=== PATIENT | male | born 1975 | race Caucasian/White ===

== ENCOUNTER 2018-07-18 16:54 | Emergency (ER) | payer BC ==
[~2018-07-18] VITALS: Ht 185.4 cm; Wt 113.4 kg
[~2018-07-18 16:54] MED LIST: ACYCLOVIR800 MG PO; AMOXICILLIN500 MG PO; BACTRIM DS 8001 TA1 PO; CEPHALEXIN500 M1 PO; DAYPRO600 M1 PO; LANTUS100 U/ML SC; LEVOTHYROXINE0.3 MG PO; NAPROSYN500 MG PO; NORCO 325 MG-51 TAB PO; NOVOLOG1 UNIT/0.0; PREDNISONE10 MG PO; ROBAXIN750 MG PO; SYNTHROID,LEVOTHROID PO; [UNRECOGNIZED DRUG - OTHER] PO
[2018-07-18] MEDS ORDERED: ZYRTEC10 MG PO (17:22)
[2018-07-18] MEDS ORDERED: Tobrex Ophth S2.5 ML OPH (17:22)
[2018-07-18] MEDS ORDERED: OMNICEF300 MG PO (17:22)
[2018-07-18] MEDS ORDERED: FLONASE ALLERG9.9 ML NAS (17:22)
== END 2018-07-18 17:40 | disposition home or self-care (01) ==
LOC: ED 16:54
DX: H10.31 Unspecified acute conjunctivitis, right eye (principal); J01.90 Acute sinusitis, unspecified; E11.9 Type 2 diabetes mellitus without complications; Z79.2 Long term (current) use of antibiotics; Z79.899 Other long term (current) drug therapy; Z79.4 Long term (current) use of insulin

== ENCOUNTER 2018-10-06 16:08 | Emergency (ER) | payer BC ==
[~2018-10-06] VITALS: Wt 117.9 kg
[~2018-10-06 16:08] MED LIST changes: +FLONASE ALLERG9.9 ML NAS; +OMNICEF300 MG PO; +Tobrex Ophth S2.5 ML OPH; +ZYRTEC10 MG PO
== END 2018-10-06 19:03 | disposition home or self-care (01) ==
LOC: ED 16:08
DX: H20.9 Unspecified iridocyclitis (principal); E11.9 Type 2 diabetes mellitus without complications; Z79.899 Other long term (current) drug therapy; Z79.2 Long term (current) use of antibiotics

== ENCOUNTER → 2019-03-25 | Outpatient (CLI) | payer BC ==
[2019-03-25 10:42] LABS: HEMATOCRIT 46.3 % (42.0-52.0); HEMOGLOBIN 15.4 g/dl (14.0-18.0); MEAN CELL VOLUME 90.3 fl (80.0-94.0); MEAN CORPUSCULAR HGB CONC 33.3 g/dl (33.0-37.0); MEAN PLATELET VOLUME 10.5 fl (9.6-12.3); RED BLOOD COUNT 5.13 10*6/uL (4.50-5.90); RED CELL DISTRI WIDTH 14.6 % (0-14.5)
[2019-03-25 11:07] LABS: ALBUMIN 3.6 gm/dl (3.1-4.5); ALKALINE PHOSPHATASE 66 U/L (45-117); BUN 13 mg/dl (7-24); CHLORIDE 107 mmol/L (98-107); CHOLESTEROL 135 mg/dL (<200); CREATININE 0.93 mg/dL (0.70-1.30); HDL CHOLESTEROL 44 mg/dl (40-60); LDL CHOLESTEROL 80 mg/dL (9-159); SGOT/AST 7 IU/L (3-35); SGPT/ALT 13 U/L (12-78); SODIUM 140 mmol/L (136-145); TRIGLYCERIDES 57 mg/dl (<150); VLDL CHOLESTEROL 11 mg/dL (6-40)
[2019-03-27 11:07] LABS: CREATININE,URINE 166.3 mg/dL (Not Estab.); MICRO ALBUMIN/CRE RATIO <1.8 (0.0-30.0)
== END | disposition home or self-care (01) ==
LOC: LAB 10:14
PROVIDERS: Family Medicine
DX: E10.9 Type 1 diabetes mellitus without complications (principal); E03.9 Hypothyroidism, unspecified; E55.9 Vitamin D deficiency, unspecified

== ENCOUNTER 2020-06-13 15:46 | Emergency (ER) | payer BC | END 2020-06-13 16:11 | disposition left against medical advice (07) | LOC: ED 15:46 | DX: H92.09 Otalgia, unspecified ear (principal); Z53.21 Procedure and treatment not carried out due to patient leaving prior to being seen by health care provider ==

== ENCOUNTER → 2020-06-19 | Outpatient (CLI) | payer BC | END | disposition home or self-care (01) | LOC: COVID19 15:30 | PROVIDERS: ATTEND Family Medicine | DX: Z20.828 Contact with and (suspected) exposure to other viral communicable diseases (principal) ==

== ENCOUNTER → 2020-07-20 | Outpatient (CLI) | payer SELFPAY ==
[2020-07-20 14:59] LABS: FREE T4 1.2 ng/dl (0.76-1.46)
== END | disposition home or self-care (01) ==
LOC: LAB 13:51
PROVIDERS: ATTEND Family Medicine
DX: R79.89 Other specified abnormal findings of blood chemistry (principal)

== ENCOUNTER 2020-10-26 10:43 | Emergency (ER) | payer SELFPAY ==
[~2020-10-26] VITALS: Ht 185.4 cm; Wt 131.5 kg
[2020-10-26] MEDS ORDERED: SEPTDS PO (11:58)
== END 2020-10-26 12:03 | disposition home or self-care (01) ==
LOC: ED 10:43
DX: L02.31 Cutaneous abscess of buttock (principal); E66.9 Obesity, unspecified; E11.9 Type 2 diabetes mellitus without complications; F17.200 Nicotine dependence, unspecified, uncomplicated; Z98.890 Other specified postprocedural states; Z79.899 Other long term (current) drug therapy

== ENCOUNTER 2020-11-23 08:50 | Emergency (ER) | payer SELFPAY ==
[~2020-11-23 08:50] MED LIST changes: +SEPTDS PO
== END 2020-11-23 09:39 | disposition home or self-care (01) ==
LOC: ED 08:50
DX: H57.12 Ocular pain, left eye (principal); Z79.899 Other long term (current) drug therapy; Z79.4 Long term (current) use of insulin; Z98.890 Other specified postprocedural states

== ENCOUNTER 2021-02-21 13:51 | Emergency (ER) | payer SELFPAY ==
[~2021-02-21] VITALS: Ht 185.4 cm; Wt 127.0 kg
[2021-02-21] MEDS ORDERED: CEPHALEXIN500 M1 PO (16:25)
== END 2021-02-21 17:46 | disposition home or self-care (01) ==
LOC: ED 13:51
DX: S92.421A Displaced fracture of distal phalanx of right great toe, initial encounter for closed fracture (principal); Z79.899 Other long term (current) drug therapy; W22.8XXA Striking against or struck by other objects, initial encounter; Y93.89 Activity, other specified; Y92.89 Other specified places as the place of occurrence of the external cause; Y99.9 Unspecified external cause status

== ENCOUNTER 2021-04-12 06:31 | Emergency (ER) | payer SELFPAY ==
[~2021-04-12] VITALS: Ht 185 cm; Wt 131.8 kg
[2021-04-12 08:53] LABS: BASO % 0.3 % (0.0-1.0); EOS # 0.2 10*3/uL (0.0-0.4); EOS % 3.2 % (1.0-4.0); HEMATOCRIT 45.2 % (42.0-52.0); LYMPH % 16.2 % (27.0-41.0); MEAN CELL VOLUME 87.6 fl (80.0-94.0); MEAN CORPUSCULAR HGB 28.3 pg (27.0-31.0); MEAN CORPUSCULAR HGB CONC 32.3 g/dl (33.0-37.0); MONO # 0.5 10*3/uL (0.1-1.0); MONO % 8.6 % (3.0-9.0); NEUT # 4.4 10*3/uL (2.3-7.9); NEUT % 71.1 % (47.0-73.0); PLATELET COUNT AUTOMATED 288 10*3/uL (130-400); RED BLOOD COUNT 5.16 10*6/uL (4.50-5.90); RED CELL DISTRI WIDTH 14.8 % (0-14.5); WHITE BLOOD COUNT 6.2 10*3/uL (4.8-10.8)
[2021-04-12 09:09] LABS: ALBUMIN 3.2 gm/dl (3.1-4.5); ALKALINE PHOSPHATASE 65 U/L (45-117); BUN 8 mg/dl (7-24); CHLORIDE 109 mmol/L (98-107); CREATININE 0.83 mg/dL (0.70-1.30); POTASSIUM 4.2 mmol/L (3.5-5.1); SGOT/AST 12 IU/L (3-35); SGPT/ALT 20 U/L (12-78); SODIUM 140 mmol/L (136-145); TOTAL PROTEIN 6.7 gm/dL (6.4-8.2)
== END 2021-04-12 13:54 | disposition home or self-care (01) ==
LOC: ED 06:31
PROVIDERS: Internal Medicine
DX: G45.9 Transient cerebral ischemic attack, unspecified (principal); Z79.899 Other long term (current) drug therapy

== ENCOUNTER 2021-11-04 02:07 | Emergency (ER) | payer BC ==
[~2021-11-04] VITALS: Ht 185.4 cm; Wt 127.9 kg
[2021-11-04 02:19] LABS: BASO % 0.4 % (0.0-1.0); EOS # 0.2 10*3/uL (0.0-0.4); EOS % 2.4 % (1.0-4.0); HEMATOCRIT 46.4 % (42.0-52.0); LYMPH # 0.9 10*3/uL (1.3-4.4); LYMPH % 10.4 % (27.0-41.0); MEAN CELL VOLUME 85.9 fl (80.0-94.0); MEAN CORPUSCULAR HGB 28.7 pg (27.0-31.0); MEAN CORPUSCULAR HGB CONC 33.4 g/dl (33.0-37.0); MEAN PLATELET VOLUME 9.6 fl (9.6-12.3); MONO # 0.6 10*3/uL (0.1-1.0); MONO % 7.1 % (3.0-9.0); PLATELET COUNT AUTOMATED 282 10*3/uL (130-400); RED CELL DISTRI WIDTH 14.3 % (0-14.5); WHITE BLOOD COUNT 8.9 10*3/uL (4.8-10.8)
[2021-11-04 02:30] LABS: BUN 13 mg/dl (7-24); CHLORIDE 107 mmol/L (98-107); CREATININE 1.08 mg/dL (0.70-1.30); POTASSIUM 4.3 mmol/L (3.5-5.1); SODIUM 139 mmol/L (136-145)
== END 2021-11-04 02:49 | disposition home or self-care (01) ==
LOC: ED 02:07
PROVIDERS: Internal Medicine
DX: E11.649 Type 2 diabetes mellitus with hypoglycemia without coma (principal); R56.9 Unspecified convulsions; E03.9 Hypothyroidism, unspecified; Z79.899 Other long term (current) drug therapy

== ENCOUNTER → 2022-03-08 | Outpatient (CLI) | payer BC | END | disposition home or self-care (01) | LOC: RESCLI 14:24 | PROVIDERS: ATTEND Internal Medicine | DX: E10.9 Type 1 diabetes mellitus without complications (principal); L03.213 Periorbital cellulitis; E03.9 Hypothyroidism, unspecified; Z79.899 Other long term (current) drug therapy ==

== ENCOUNTER → 2022-10-11 | Outpatient (CLI) | payer BC | END | disposition home or self-care (01) | LOC: RESCLI 00:04 | PROVIDERS: ATTEND Family Medicine | DX: E03.9 Hypothyroidism, unspecified (principal); E10.9 Type 1 diabetes mellitus without complications; F17.210 Nicotine dependence, cigarettes, uncomplicated; Z98.890 Other specified postprocedural states; Z79.4 Long term (current) use of insulin; Z82.49 Family history of ischemic heart disease and other diseases of the circulatory system; Z79.899 Other long term (current) drug therapy ==

== ENCOUNTER 2022-10-28 16:45 | Emergency (ER) | payer BC ==
[~2022-10-28] VITALS: Ht 185.4 cm; Wt 127.0 kg
[2022-10-28 18:41] LABS: BASO % 0.6 % (0.0-1.0); EOS # 0.2 10*3/uL (0.0-0.4); EOS % 3.1 % (1.0-4.0); HEMATOCRIT 48.5 % (42.0-52.0); LYMPH % 19.8 % (27.0-41.0); MEAN CELL VOLUME 86.3 fl (80.0-94.0); MEAN CORPUSCULAR HGB CONC 33.6 g/dl (33.0-37.0); MEAN PLATELET VOLUME 9.5 fl (9.6-12.3); MONO # 0.9 10*3/uL (0.1-1.0); MONO % 19.4 % (3.0-9.0); NEUT # 2.7 10*3/uL (2.3-7.9); NEUT % 56.5 % (47.0-73.0); PLATELET COUNT AUTOMATED 250 10*3/uL (130-400); RED BLOOD COUNT 5.62 10*6/uL (4.50-5.90); RED CELL DISTRI WIDTH 14.5 % (0-14.5); WHITE BLOOD COUNT 4.8 10*3/uL (4.8-10.8)
[2022-10-28 18:56] LABS: ALKALINE PHOSPHATASE 84 U/L (46-116); BUN 7 mg/dl (9-23); CHLORIDE 100 mmol/L (98-107); POTASSIUM 4.7 mmol/L (3.4-5.1); SGPT/ALT 9 U/L (10-49); TOTAL PROTEIN 7.4 gm/dL (6.0-8.0)
[2022-10-28 21:36] LABS: BILIRUBIN 1+ (Negative); BLOOD Negative (Negative); CLARITY Clear (Clear); COLOR Dark Yellow (Yellow); GLUCOSE 3+ (Negative); KETONE 1+ (Negative); LEUKO ESTERASE Negative (Negative); NITRITE Negative (Negative); PH 5.5 (4.5-8.0); SPECIFIC GRAVITY >= 1.030 (1.001-1.030)
[2022-10-28 21:42] LABS: FINE GRANULAR CAST 0-2; MUCOUS 2+
[2022-10-28] MEDS ORDERED: ALBUTEROL2.5 MG/0.5 INH (22:09)
[2022-10-28] MEDS ORDERED: BROMFED DM COU118 M2 PO (22:09)
[2022-10-28] MEDS ORDERED: MEDROL DOSEPAK4 MG PO (22:09)
[2022-10-28] MEDS ORDERED: ZANAFLEX4 MG PO (22:09)
== END 2022-10-28 22:14 | disposition home or self-care (01) ==
LOC: ED 16:45
PROVIDERS: Nurse Practitioner Family
DX: J06.9 Acute upper respiratory infection, unspecified (principal); Z20.822 Contact with and (suspected) exposure to COVID-19; Z79.899 Other long term (current) drug therapy

== ENCOUNTER 2023-05-20 07:36 | Emergency (ER) | payer BC ==
[~2023-05-20] VITALS: Ht 185.9 cm; Wt 112.9 kg
[~2023-05-20 07:36] MED LIST changes: +ALBUTEROL2.5 MG/0.5 INH; +BROMFED DM COU118 M2 PO; +MEDROL DOSEPAK4 MG PO; +ZANAFLEX4 MG PO
[2023-05-20 08:15] LABS: BASO % 0.4 % (0.0-1.0); EOS # 0.2 10*3/uL (0.0-0.4); EOS % 2.9 % (1.0-4.0); HEMATOCRIT 46.2 % (42.0-52.0); LYMPH # 0.9 10*3/uL (1.3-4.4); LYMPH % 12.4 % (27.0-41.0); MEAN CELL VOLUME 87.8 fl (80.0-94.0); MEAN CORPUSCULAR HGB 29.7 pg (27.0-31.0); MEAN CORPUSCULAR HGB CONC 33.8 g/dl (33.0-37.0); MONO # 0.4 10*3/uL (0.1-1.0); MONO % 5.6 % (3.0-9.0); NEUT # 5.7 10*3/uL (2.3-7.9); NEUT % 77.7 % (47.0-73.0); PLATELET COUNT AUTOMATED 316 10*3/uL (130-400); RED BLOOD COUNT 5.26 10*6/uL (4.50-5.90); RED CELL DISTRI WIDTH 15.3 % (0-14.5); WHITE BLOOD COUNT 7.3 10*3/uL (4.8-10.8)
[2023-05-20 08:26] LABS: ACT PARTIAL THROMBO TIME 29.7 SECONDS (20.0-32.1)
[2023-05-20 08:35] LABS: ALKALINE PHOSPHATASE 61 U/L (46-116); BUN 8 mg/dl (9-23); CHLORIDE 109 mmol/L (98-107); LIPASE 31 U/L (12-53); POTASSIUM 4.1 mmol/L (3.4-5.1); SGPT/ALT 11 U/L (5-49); TOTAL PROTEIN 6.7 gm/dL (6.0-8.0)
== END 2023-05-20 10:37 | disposition left against medical advice (07) ==
LOC: ED 07:36
PROVIDERS: Emergency Medicine
DX: I99.8 Other disorder of circulatory system (principal); E03.9 Hypothyroidism, unspecified; E11.9 Type 2 diabetes mellitus without complications; Z79.4 Long term (current) use of insulin; Z98.890 Other specified postprocedural states

== ENCOUNTER → 2023-06-07 | Outpatient (CLI) | payer BC ==
[2023-06-07 18:23] LABS: URINE CREATININE RANDOM 225.22 mg/dL
[2023-06-07 18:53] LABS: FREE T4 1.62 ng/dl (0.89-1.76)
== END | disposition home or self-care (01) ==
LOC: RESCLI 00:34 → LAB 00:36
PROVIDERS: Student in an Organized Health Care Education/Training Program; ATTEND Family Medicine
DX: E10.9 Type 1 diabetes mellitus without complications (principal)

== ENCOUNTER 2023-11-03 17:48 | Emergency (ER) | payer BC ==
[~2023-11-03] VITALS: Ht 185.4 cm; Wt 122.5 kg
[2023-11-03] MEDS ORDERED: Acetaminophen/Hydrocodone HP 10/325 PO ONE (20:35)
[2023-11-03] MEDS ORDERED: Ondansetron Hydrochloride 4 MG TAB SL ONE (20:35)
[2023-11-03] MEDS ORDERED: CEPHALEXIN500 M1 PO (21:54)
[2023-11-03] MEDS ORDERED: MUPIROCIN 15 GM TUBE T ONE (22:05)
[2023-11-04] MEDS ORDERED: MUPIROCIN 15 GM TUBE T SCH (10:00)
== END 2023-11-03 22:15 | disposition home or self-care (01) ==
LOC: ED 17:48
DX: S91.112A Laceration without foreign body of left great toe without damage to nail, initial encounter (principal); Z98.890 Other specified postprocedural states; Z87.891 Personal history of nicotine dependence; W20.8XXA Other cause of strike by thrown, projected or falling object, initial encounter; Y93.89 Activity, other specified; Y92.89 Other specified places as the place of occurrence of the external cause; Y99.0 Civilian activity done for income or pay

== ENCOUNTER 2023-11-11 03:21 | Emergency (ER) | payer BC ==
[~2023-11-11] VITALS: Ht 185.4 cm; Wt 117.0 kg
[2023-11-11 04:08] LABS: BASO % 0.2 % (0.0-1.0); EOS # 0.2 10*3/uL (0.0-0.4); EOS % 1.9 % (1.0-4.0); HEMATOCRIT 44.5 % (42.0-52.0); LYMPH # 0.7 10*3/uL (1.3-4.4); LYMPH % 7.3 % (27.0-41.0); MEAN CELL VOLUME 87.9 fl (80.0-94.0); MEAN CORPUSCULAR HGB 28.3 pg (27.0-31.0); MEAN CORPUSCULAR HGB CONC 32.1 g/dl (33.0-37.0); MONO # 0.6 10*3/uL (0.1-1.0); MONO % 6.4 % (3.0-9.0); NEUT # 7.7 10*3/uL (2.3-7.9); NEUT % 83.3 % (47.0-73.0); PLATELET COUNT AUTOMATED 282 10*3/uL (130-400); RED BLOOD COUNT 5.06 10*6/uL (4.50-5.90); RED CELL DISTRI WIDTH 14.6 % (0-14.5); WHITE BLOOD COUNT 9.3 10*3/uL (4.8-10.8)
[2023-11-11 04:37] LABS: BUN 12 mg/dl (9-23); CHLORIDE 107 mmol/L (98-107); POTASSIUM 3.9 mmol/L (3.4-5.1)
== END 2023-11-11 05:35 | disposition home or self-care (01) ==
LOC: ED 03:21
PROVIDERS: Emergency Medicine
DX: E10.649 Type 1 diabetes mellitus with hypoglycemia without coma (principal); E03.9 Hypothyroidism, unspecified; Z98.890 Other specified postprocedural states; Z87.891 Personal history of nicotine dependence

== ENCOUNTER 2023-11-18 15:55 | Emergency (ER) | payer BC ==
[~2023-11-18] VITALS: Ht 185.4 cm; Wt 122.5 kg
[~2023-11-18 15:55] MED LIST changes: -LEVOTHYROXINE0.3 MG PO; +LEVOTHYROXINE300 MCG PO
[2023-11-18] MEDS ORDERED: CLINDAMYCIN HCL 300 MG CAPSULE PO ONE (16:40)
[2023-11-18] MEDS ORDERED: CIPRO500 MG PO (16:40)
[2023-11-18] MEDS ORDERED: CLEOCIN HCL300 MG PO (16:40)
[2023-11-18] MEDS ORDERED: Ciprofloxacin Hydrochloride 500 MG TAB PO ONE (16:40)
== END 2023-11-18 17:36 | disposition home or self-care (01) ==
LOC: ED 15:55
DX: S92.422G Displaced fracture of distal phalanx of left great toe, subsequent encounter for fracture with delayed healing (principal); E11.9 Type 2 diabetes mellitus without complications; Z79.4 Long term (current) use of insulin; Z98.890 Other specified postprocedural states; X58.XXXD Exposure to other specified factors, subsequent encounter

== ENCOUNTER → 2024-01-24 | Outpatient (CLI) | payer BC ==
[~2024-01-24] MED LIST changes: +CIPRO500 MG PO; +CLEOCIN HCL300 MG PO
[2024-01-24 18:18] LABS: URINE CREATININE RANDOM 207.34 mg/dL
[2024-01-24 18:32] LABS: CHOLESTEROL 132 mg/dL (<200); LDL CHOLESTEROL 74 mg/dL (9-159); TRIGLYCERIDES 80 mg/dl (<150)
[2024-01-24 18:51] LABS: FREE T4 1.77 ng/dl (0.89-1.76)
== END | disposition home or self-care (01) ==
LOC: RESCLI 00:14 → LAB 02:04
PROVIDERS: Student in an Organized Health Care Education/Training Program; ATTEND Student in an Organized Health Care Education/Training Program
DX: E10.9 Type 1 diabetes mellitus without complications (principal); E03.9 Hypothyroidism, unspecified; Z79.899 Other long term (current) drug therapy

== ENCOUNTER 2024-05-05 14:18 | Emergency (ER) | payer BC ==
[~2024-05-05] VITALS: Ht 185.4 cm; Wt 117.9 kg
[2024-05-05 14:54] LABS: BASO % 0.3 % (0.0-1.0); EOS # 0.2 10*3/uL (0.0-0.4); EOS % 2.9 % (1.0-4.0); HEMATOCRIT 42.6 % (42.0-52.0); LYMPH # 1.2 10*3/uL (1.3-4.4); LYMPH % 16.1 % (27.0-41.0); MEAN CELL VOLUME 86.8 fl (80.0-94.0); MEAN CORPUSCULAR HGB 28.7 pg (27.0-31.0); MEAN CORPUSCULAR HGB CONC 33.1 g/dl (33.0-37.0); MEAN PLATELET VOLUME 9.6 fl (9.6-12.3); MONO # 0.7 10*3/uL (0.1-1.0); MONO % 9.1 % (3.0-9.0); NEUT # 5.3 10*3/uL (2.3-7.9); NEUT % 70.7 % (47.0-73.0); PLATELET COUNT AUTOMATED 284 10*3/uL (130-400); RED BLOOD COUNT 4.91 10*6/uL (4.50-5.90); RED CELL DISTRI WIDTH 14.6 % (0-14.5); WHITE BLOOD COUNT 7.5 10*3/uL (4.8-10.8)
[2024-05-05 15:18] LABS: ALKALINE PHOSPHATASE 74 U/L (46-116); BUN 9 mg/dl (9-23); CHLORIDE 108 mmol/L (98-107); LIPASE 26 U/L (12-53); POTASSIUM 3.5 mmol/L (3.4-5.1); SGPT/ALT 13 U/L (5-49); TOTAL PROTEIN 6.9 gm/dL (6.0-8.0)
[2024-05-05] MEDS ORDERED: Lidocaine Hydrochloride 15 ML UDC PO STA (15:23)
[2024-05-05] MEDS ORDERED: Dicyclomine Hydrochloride 20 MG/10 ML OSYR PO STA (15:23)
[2024-05-05] MEDS ORDERED: MG-AL HYDROXIDE/SIMETICONE 30 ML UDC PO STA (15:23)
[2024-05-05] MEDS ORDERED: PANTOPRAZOLE SO40 MG PO (16:12)
== END 2024-05-05 16:25 | disposition home or self-care (01) ==
LOC: ED 14:18
PROVIDERS: Nurse Practitioner Family
DX: R07.89 Other chest pain (principal); K21.9 Gastro-esophageal reflux disease without esophagitis; E11.649 Type 2 diabetes mellitus with hypoglycemia without coma; E03.9 Hypothyroidism, unspecified; Z86.73 Personal history of transient ischemic attack (TIA), and cerebral infarction without residual deficits; Z98.890 Other specified postprocedural states

== ENCOUNTER → 2024-06-26 | Outpatient (CLI) | payer BC ==
[~2024-06-26] MED LIST changes: +PANTOPRAZOLE SO40 MG PO
[2024-06-26 17:51] LABS: FREE T4 1.98 ng/dl (0.89-1.76)
== END | disposition home or self-care (01) ==
LOC: RESCLI 02:21 → LAB 02:21 → RESCLI 03:30
PROVIDERS: ATTEND Family Medicine
DX: E03.9 Hypothyroidism, unspecified (principal)

== ENCOUNTER 2025-06-13 10:48 | Emergency (ER) | payer BC ==
[~2025-06-13] VITALS: Wt 122.5 kg
[2025-06-13] MEDS ORDERED: FLUORESCEIN SODIUM 1 MG STRIP OPH ONE (11:35)
[2025-06-13] MEDS ORDERED: Tetracaine Hydrochloride 0.5% 4 ML BOT OPH ONE (11:35)
[2025-06-13] MEDS ORDERED: OFLOXACIN 0.3% 5 ML BOTTLE OPH ONE (12:20)
== END 2025-06-13 12:36 | disposition home or self-care (01) ==
LOC: ED 10:48
DX: S05.12XA Contusion of eyeball and orbital tissues, left eye, initial encounter (principal); S05.8X2A Other injuries of left eye and orbit, initial encounter; S05.02XA Injury of conjunctiva and corneal abrasion without foreign body, left eye, initial encounter; K21.9 Gastro-esophageal reflux disease without esophagitis; E11.9 Type 2 diabetes mellitus without complications; E03.9 Hypothyroidism, unspecified; X58.XXXA Exposure to other specified factors, initial encounter; Y93.89 Activity, other specified; Y92.89 Other specified places as the place of occurrence of the external cause; Y99.8 Other external cause status